=== PATIENT | female | born 1980 | race African-American/Black ===

== ENCOUNTER 2016-12-19 02:13 | Emergency (ER) | payer BC ==
[~2016-12-19] VITALS: Ht 167.6 cm; Wt 93.3 kg
[2016-12-19 02:22] VITALS: TEMP 37; Ht 167.6 cm; Wt 93.3 kg
--- NOTE | 2016-12-19 03:07 | EMERGENCY ROOM VISIT NOTE ---
History Report prepared by Mele: Aster Granda Under the Supervision of: Dr. Savannah Bae D.O. First contact with patient: 02:24 Chief Complaint: FOREIGNBODY ANY BODY PART Stated Complaint: LODGED TAMPON History of Present Illness The patient is a 36 year old female who presents to the Emergency Room with complaints of an episode of a retained tampon. The patient has a history of retained tampons. She notes a difficulty finding the tampon. Source of History: patient Position: other (global) Quality: other (lodged tampon) Timing: other (episode) Modifying Factors (Relieving): other (none) Review of Systems See HPI for pertinent positives & negatives. A total of 10 systems reviewed and were otherwise negative. Past Medical & Surgical Surgical Problems: (1) H/O wisdom tooth extraction (2) Previous section Family History No pertinent family history stated. Social History Smoking Status: Never Smoker Smokeless Tobacco Use: No Alcohol Use: none Housing Status: lives with family Occupation Status: employed Current/Historical Medications No Active Prescriptions or Reported Meds Allergies Coded Allergies: No Known Allergies (Unverified , 12/19/16) Physical Exam Vital Signs Date Time Temp Pulse Resp B/P (MAP) Pulse Ox O2 Delivery O2 Flow Rate FiO2 12/19/16 03:10 60 16 107/73 99 12/19/16 02:22 37.0 72 18 125/80 100 Room Air Physical Exam Pelvic exam: On speculum exam, there was some blood in the vaginal canal but no obvious retained tampon. I did move the cervix from side to side to ensure that the tampon was not lodged around the cervix. I used a larger speculum and still could not seen any retained tampon. I did a bimanual examination and could not feel a retained tampon either. Medical Decision & Procedures ED Course 0242: Past medical records reviewed. The patient was evaluated in room B9. A complete history and physical exam was performed. 0335 Upon reevaluation, resting. I discussed findings and results with her. She verbalized agreement of the treatment plan. The patient was discharged home. Medical Decision The patient is a 36 year old female who presents to the Emergency Room with complaints of an episode of a retained tampon. The patient explains that she thought that she had used a tampon earlier this evening and felt that she was pulling on a string to remove that tampon but could not get it to come out. She found this process very painful. When nothing was found on pelvic exam, the patient then believe that she may have been pulling on her flesh and that's why it was so painful. Medication Reconcilliation Current Medication List: was personally reviewed by me Blood Pressure Screening Patient's blood pressure: Normal blood pressure Impression Primary Impression: Vagina bleeding Scribe Attestation The scribe's documentation has been prepared under my direction and personally reviewed by me in its entirety. I confirm that the note above accurately reflects all work, treatment, procedures, and medical decision making performed by me. Departure Information Dispostion Home / Self-Care Prescriptions No Active Prescriptions or Reported Meds Referrals No Doctor, Assigned (PCP) Forms HOME CARE DOCUMENTATION FORM, IMPORTANT VISIT INFORMATION, WORK / SCHOOL INSTRUCTIONS Patient Instructions [facility]
[2016-12-19 03:10] VITALS: BP 107/73; PULSE 60; O2SAT 99
== END 2016-12-19 03:35 | disposition home or self-care (01) ==
LOC: C.EDB 02:14
DX: N93.9 Abnormal uterine and vaginal bleeding, unspecified (principal)

== ENCOUNTER → 2016-12-24 | Outpatient (CLI) | payer BC ==
[2016-12-24 18:42] LABS: BASO % 0.6 %; BASO ABS # 0.05 K/uL (0-0.2); COMPLETE YES; EOS % 2.7 %; HEMATOCRIT 36.4 % (37-47); IG% 0.1 %; LYMPH % 31.9 %; LYMPH ABS # 2.57 K/uL (1.2-3.4); MEAN CORPUSCULAR HEMOGLOBIN 27.8 pg (25-34); MEAN CORPUSCULAR HGB CONC 32.7 g/dl (32-36); MEAN PLATELET VOLUME 11.2 fL (7.4-10.4); MONO % 4.3 %; NEUT % 60.4 %; PLATELET COUNT 352 K/uL (130-400); RED BLOOD COUNT 4.28 M/uL (4.2-5.4); WHITE BLOOD COUNT 8.05 K/uL (4.8-10.8)
[2016-12-24 18:56] LABS: PREG INTERNAL NEGATIVE QC NEG CLEAR BACKGROUND; PREG INTERNAL POSITIVE QC POS CONTROL LINE
== END | disposition home or self-care (01) ==
LOC: C.LAB 17:26
PROVIDERS: ATTEND Family Medicine
DX: R10.2 Pelvic and perineal pain (principal)